=== PATIENT | female | born 1975 | race Caucasian/White ===

== ENCOUNTER → 2017-12-07 | Outpatient (CLI) | payer OTHER ==
[~2017-12-07] MED LIST: CLON.5; IBUP800 PO; MONT10T PO; TRAM50 PO; ZOLP5 PO
== END | disposition home or self-care (01) ==
LOC: LAB SHORT 14:35
DX: R39.15 Urgency of urination (principal)
CPT/HCPCS: 87086

== ENCOUNTER → 2019-02-07 | Outpatient (CLI) | payer OTHER ==
[2019-02-07 19:35] LABS: Influenza A Positive (NEGATIVE); Influenza B Negative (NEGATIVE)
== END | disposition home or self-care (01) ==
LOC: LAB 17:15 → LAB SHORT 17:15
PROVIDERS: Hospitalist
DX: R50.9 Fever, unspecified (principal)
CPT/HCPCS: 87804

== ENCOUNTER → 2021-03-15 | Outpatient (CLI) | payer BC, OTHER | END | disposition home or self-care (01) | LOC: LAB SHORT 12:18 → LAB 12:18 | DX: D48.5 Neoplasm of uncertain behavior of skin (principal) | CPT/HCPCS: 88305 ==

== ENCOUNTER → 2023-11-16 | Outpatient (CLI) | payer BC, OTHER | LOC: LAB SHORT 15:30 → LAB 15:30 | DX: D48.5 Neoplasm of uncertain behavior of skin (principal) | CPT/HCPCS: 88305 ==

== ENCOUNTER 2024-11-15 07:16 | Day surgery (SDC) | payer BC ==
[~2024-11-15] VITALS: Ht 165.1 cm; Wt 86.2 kg
[2024-11-15] MEDS ORDERED: propofoL 50 ML IV ONE (07:53)
[2024-11-15] MEDS ORDERED: Lactated Ringer's 1,000 ML IV ONE ×2 (07:53→08:43)
[2024-11-15] MEDS ORDERED: DRIZALMA SPRINK20 MG (08:15)
[2024-11-15] MEDS ORDERED: GEMTESA75 MG (08:16)
[2024-11-15] MEDS ORDERED: PROG100 (08:18)
[2024-11-15] MEDS ORDERED: ESTEST.62T (08:19)
--- NOTE | 2024-11-15 08:38 | NUR ---
11/15/24 0838 CYNTHIA SANDERS PT REFUSED HCG TEST.SHE WAS MADE AWARE OF RISK FACTORS OF DEEPRO SEDATION PT POTENTIAL PREGNANCIES. PT VERB UNDERSTANDING OF RISKS. RN ADMIN PHYSICIAN DIRECTED FOR ENDOSCOPY. RN SIMON TOWNSEND STATED OK TO MOVE AHEAD WITH EXAM W SIGNED REFUSAL FORM. AWARE AND SIGNED SAID FORM ALSO. END NOTE RDS.
[2024-11-15 09:50] VITALS: BP 125/84
== END 2024-11-15 09:55 | disposition home or self-care (01) ==
LOC: ORSCSDS 07:16
PROVIDERS: Internal Medicine Gastroenterology
PROC: 0DBN8ZX Excision of Sigmoid Colon, Via Natural or Artificial Opening Endoscopic, Diagnostic (ICD-10-PCS; principal; 2024-11-15 08:45)
DX: Z12.11 Encounter for screening for malignant neoplasm of colon (principal); D12.5 Benign neoplasm of sigmoid colon; K57.30 Diverticulosis of large intestine without perforation or abscess without bleeding; Z86.0101 Personal history of adenomatous and serrated colon polyps
CPT/HCPCS: 88305; J2704; J7120